=== PATIENT | female | born 1980 | race Caucasian/White ===

== ENCOUNTER 2021-05-12 22:00 | Emergency (ER) | payer BC ==
[2021-05-12 22:50] VITALS: BP 169/83; PULSE 112; RESP 20; TEMP 98.6
--- NOTE | 2021-05-12 23:22 | XR ---
EXAMINATION TYPE: XR ankle complete RT DATE OF EXAM: 05/12/2021 COMPARISON: NONE HISTORY: Ankle pain TECHNIQUE: 3 views FINDINGS: Ankle mortise is anatomic. I see no fracture nor dislocation. There is slight soft tissue s welling over the lateral malleolus. IMPRESSION: Minimal soft tissue swelling. No fracture.
--- NOTE | 2021-05-13 00:41 | ED ---
General Adult HPI - General Chief complaint: Extremity Injury, Lower Stated complaint: Right Ankle Injury Time Seen by Provider: 05/13/21 00:05 Source: patient, RN notes reviewed Mode of arrival: ambulatory Limitations: no limitations - History of Present Illness Initial comments: 40-year-old female presents to the emergency department for evaluation of right ankle pain. Patient states she was assisting her reposition a chicken coop when she felt a pop in her right ankle. Patient states her weight shifted on the right ankle when she pushed off twisting her ankle. States the pain radiated up into her calf and down to her foot. Pain is worse with activity and weight bearing. Denies any further injury. No loss of sensation or range of motion. - Related Data Home Medications Medication Instructions Recorded Confirmed [place]-3 Fatty Acids [[place]-3] 1 tab PO DAILY 08/06/15 08/06/15 Phentermine HCl [Adipex-P] 1 tab PO DAILY 08/06/15 08/06/15 Previous Rx's Medication Instructions Recorded Ibuprofen [Motrin] 600 mg PO Q8HR PRN #30 tab 05/13/21 Allergies Allergy/AdvReac Type Severity Reaction Status Date / Time sumatriptan [From Imitrex] AdvReac Rash/Hives Verified 05/12/21 22:50 sumatriptan succinate AdvReac Rash/Hives Verified 05/12/21 22:50 [From Imitrex] Review of Systems ROS Statement: Those systems with pertinent positive or pertinent negative responses have been documented in the HPI. ROS Other: All systems not noted in ROS Statement are negative. Past Medical History Past Medical History: No Reported History History of Any Multi-Drug Resistant Organisms: None Reported Past Surgical History: Section Past Psychological History: No Psychological Hx Reported Smoking Status: Current every day smoker Past Alcohol Use History: Daily Past Drug Use History: None Reported General Exam Limitations: no limitations (Well-developed, well-nourished female in no acute distress. Initial temperature 98.6, pulse 112, respirations 20, blood pressure 169/83, pulse ox 98% on room air.) General appearance: alert, in no apparent distress Respiratory exam: Present: normal lung sounds bilaterally. Absent: respiratory distress, wheezes, rales, rhonchi, stridor Cardiovascular Exam: Present: regular rate (heart rate 112 initially, improved to 80s upon auscultation.), normal rhythm, normal heart sounds. Absent: systolic murmur, diastolic murmur, rubs, gallop, clicks GI/Abdominal exam: Present: soft, normal bowel sounds. Absent: distended, tenderness, guarding, rebound, rigid Right Knee exam: Present: normal inspection, full ROM. Absent: tenderness, swelling Lower Leg exam: Present: normal inspection, full ROM. Absent: tenderness, swelling, erythema, Homans' sign Ankle exam: Present: tenderness (Some tenderness on palpation of the right lateral malleolus extending posteriorly.), swelling (Mild swelling over the right lateral malleolus. ), ecchymosis, deformity, erythema, anterior draw sign Neurovascular tendon exam: Present: no vascular compromise (+2 pedal and posttibial pulses). Absent: pulse deficit, abnormal cap refill Neurological exam: Present: alert, oriented X3, CN II-XII intact Psychiatric exam: Present: normal affect, normal mood Skin exam: Present: warm, dry, intact, normal color. Absent: rash Course Vital Signs 05/12/21 22:43 Temperature 98.6 F Pulse Rate 112 H Respiratory 20 Rate Blood Pressure 169/83 O2 Sat by Pulse 98 Oximetry Procedures - Orthopedic Splinting/Casting Injury #1 Side: right Lower Extremity Injury Location: ankle Lower Extremity Immobilizer: AirCast Other Orthopedic Equipment: other (ambulatory without assistive device) Additional Comments: jai wrap and air cast applied- instructed to utilize air cast with any weight bearing activity as long as pain persists or until seen and cleared by PCP. Medical Decision Making - Medical Decision Making 40-year-old female in no significant past medical history presents to the emergency department for evaluation of right ankle pain/injury which occurred during loadbearing activity. Upon exam, patient is well-appearing and in no acute distress. She is seated in a wheelchair with the affected extremity elevated. She has mild swelling to the right lateral malleolus. Distal pulses +2. Cap refill is within normal limits. Plantar and dorsiflexion intact. X- ray of the right ankle was negative. Patient was given Motrin with improvement. Jai wrap and stirrup splint were applied. Patient is instructed to follow up with her PCP or an orthopedic referral if needed. Return parameters were discussed in detail. Patient verbalizes understanding and agrees with this plan. Attending: Noelle. - Radiology Data Radiology results: report reviewed, image reviewed X-rays the right ankle was obtained. Report was reviewed in its entirety. Impression per Dr. Gonzalez is minimal soft tissue swelling. No fracture. Disposition Clinical Impression: Right ankle sprain Disposition: HOME SELF-CARE Condition: Stable Instructions (If sedation given, give patient instructions): Ankle Sprain (ED) Additional Instructions: Keep Jai wrap in place. Utilize air splint with weightbearing activity. Take Motrin for discomfort and anti-inflammatory properties. Apply ice for no more than 20 minutes of every hour. Keep extremity elevated when seated. Follow-up with your PCP for an orthopedic referral. Return to the emergency department with any new, worsening, or concerning symptoms. Prescriptions: Ibuprofen [Motrin] 600 mg PO Q8HR PRN #30 tab PRN Reason: Pain Is patient prescribed a controlled substance at d/c from ED?: No Referrals: Jose G Gonzalez DO [Primary Care Provider] - 1-2 days [facility] [Provider Group] - 1-2 days Time of Disposition: 00:44
[2021-05-13] MEDS ORDERED: IBUPROFEN 600 MG TAB PO STA (00:44)
== END 2021-05-13 01:04 | disposition home or self-care (01) ==
LOC: EC 22:00
DX: S93.401A Sprain of unspecified ligament of right ankle, initial encounter (principal); F17.200 Nicotine dependence, unspecified, uncomplicated; X50.1XXA Overexertion from prolonged static or awkward postures, initial encounter
CPT/HCPCS: 99283